=== PATIENT | female | born 1990 | race Caucasian/White ===

== ENCOUNTER 2018-05-05 06:24 | Inpatient (IN) | payer OTHER ==
[~2018-05-05] VITALS: Ht 160 cm; Wt 59.0 kg
[2018-05-05 08:00] VITALS: BP 86/54
[2018-05-05] MEDS ORDERED: NACL 0.9% 1,000 ML IV SCH (08:50)
[2018-05-05] MEDS ORDERED: DOCUSATE SODIUM 100 MG GELCAP PO PRN (08:50)
[2018-05-05] MEDS ORDERED: ONDANSETRON 4 MG/2 ML VIAL IM/IVP PRN (08:50)
[2018-05-05] MEDS ORDERED: HYDROcodone/APAP 5/325 MG 1 TAB TAB PO PRN (08:50)
[2018-05-05] MEDS ORDERED: ACETAMINOPHEN 325 MG TAB PO PRN (08:50)
[2018-05-05] MEDS ORDERED: MORPHINE SULFATE 2 MG/ML SYR IVP PRN (08:50)
[2018-05-05 09:54] LABS: BASOPHILS % (AUTO) 0.4 % (0.0-2.0); HEMATOCRIT 36.8 % (36-48); HEMOGLOBIN 12.8 g/dL (12.0-16.0); LYMPHOCYTES # (AUTO) 0.2 K/uL (2.5-16.5); LYMPHOCYTES % (AUTO) 7.6 % (20.5-51.1); MEAN CORPUSCULAR HEMOGLOBIN 29 pg (27-31); MEAN CORPUSCULAR HGB CONC 35 g/dL (33-37); MEAN CORPUSCULAR VOLUME 83.6 fL (80-94); MONOCYTES # (AUTO) 0.2 K/uL (0.8-1.0); MONOCYTES % (AUTO) 6.3 % (1.7-9.3); NEUTROPHILS # (AUTO) 2.3 K/uL (1.8-7.7); NEUTROPHILS % (AUTO) 85.7 % (42.2-75.2); PLATELET COUNT (AUTO) 131 K/uL (140-450); RED BLOOD CELL COUNT(AUTO) 4.41 MIL/uL (4.20-5.40); WHITE BLOOD COUNT (AUTO) 2.6 K/uL (4.8-10.8)
[2018-05-05 10:16] LABS: ALBUMIN 3.4 g/dL (3.4-5.0); ANION GAP 12.7 (8-16); CREATININE 0.8 mg/dL (0.6-1.3); POTASSIUM 3.7 mmol/L (3.5-5.1); TOTAL BILIRUBIN 1.1 mg/dL (0.0-1.0)
[2018-05-05 10:24] LABS: CHOL/HDL RATIO 2.8 (1-4.5); PHOSPHORUS 4.4 mg/dL (2.5-4.9); THYROID STIMULATING HORMONE 1.36 uIU/mL (0.34-3.74)
[2018-05-05 10:27] LABS: PROTHROMBIN TIME 12.3 secs (10.8-13.4)
--- NOTE | 2018-05-05 11:28 | NUR ---
SPOKE WITH DR BUI. ORDERS TO OBTAIN CONSENT FOR ERCP
[2018-05-05] MEDS: PIPER/TAZO 3.375GM/D5W PREMIX 50 ML IV SCH ×2 (11:49→17:31)
[2018-05-05 12:00] VITALS: BP 90/64
[2018-05-05] MEDS ORDERED: MEPERIDINE 50 MG/ML SYR ONE (14:10)
[2018-05-05] MEDS ORDERED: fentaNYL 0.05 MG/ML VIAL ONE (14:10)
[2018-05-05] MEDS ORDERED: MIDAZOLAM 2 MG/2 ML VIAL ONE (14:10)
[2018-05-05] MEDS ORDERED: LACTATED RINGERS 1,000 ML IV SCH (15:20)
[2018-05-05 16:00] VITALS: BP 100/74
[2018-05-05] MEDS: DEXT 5% /NACL 0.9% 1,000 ML IV SCH (17:37)
--- NOTE | 2018-05-05 19:25 | NUR ---
REPORT GIVEN TO HOUSETRAILER SERVICER NURSE AT BEDSIDE. PATIENT IS IN STABLE CONDITION.
--- NOTE | 2018-05-05 19:26 | NUR ---
RECEIVED REPORT FROM DAY SHIFT NURSE. AAOX4. NO C/O PAIN. NO C/O NAUSEA OR VOMITING. IV TO LEFT FA #20G, D5NS AT 100 ML, INFUSING WELL. IV TO RIGHT AC #20, SALINE LOCK. DISCUSSED PLAN OF CARE, PT VERBALIZED UNDERSTANDING. CALL LIGHT WITHIN REACH.
[2018-05-05 20:00] VITALS: BP 116/73
--- NOTE | 2018-05-05 21:10 | NUR ---
PT C/O ABDOMINAL PAIN 5/10 SCALE. NORCO 5/325MG GIVEN ORDERED.
--- NOTE | 2018-05-05 23:30 | NUR ---
PT IN BED, AWAKE. NO C/O PAIN. NO RESP DISTRESS NOTED. ALL NEEDS MET AT THIS TIME. CALL LIGHT WITHIN REACH.
[2018-05-06] VITALS: BP 98/67
[2018-05-06] MEDS: PIPER/TAZO 3.375GM/D5W PREMIX 50 ML IV SCH ×3 (00:51→11:29)
--- NOTE | 2018-05-06 01:45 | NUR ---
PT RESTING IN BED WITH EYES CLOSED. RESP EVEN AND UNLABORED. NO S/S OF PAIN OR DISCOMFORT.
[2018-05-06] MEDS: DEXT 5% /NACL 0.9% 1,000 ML IV SCH ×3 (02:45→22:45)
--- NOTE | 2018-05-06 03:50 | NUR ---
PT SLEEPING BUT EASILY AROUSABLE. NO S/S OF DISTRESS NOTED.
[2018-05-06 04:00] VITALS: BP 98/61
[2018-05-06 06:21] LABS: T4 (THYROXINE) 10.7 ug/dL (4.5-12.0)
--- NOTE | 2018-05-06 06:38 | NUR ---
PATIENT HAS BEEN SCREENED AND CATEGORIZED HIGH NUTRITION RISK. PATIENT WILL BE SEEN WITHIN 1-2 DAYS OF ADMISSION. 05/06/18-05/07/18 ISABELL TIM MS, RDN
--- NOTE | 2018-05-06 07:15 | NUR ---
ENDORSED PT TO DAY SHIFT NURSE. PT IN STABLE CONDITION.
--- NOTE | 2018-05-06 07:30 | NUR ---
RECEIVED PT REPORT FROM MANAGER INSTRUMENTATION NURSE. AAOX4. NO C/O PAIN. NO C/O NAUSEA OR VOMITING. LUNG SOUNDS CLEAR, BOWEL SOUNDS ACTIVE. IV TO LEFT FA #20G, D5NS AT 100 ML, INFUSING WELL. IV TO RIGHT AC #20, SALINE LOCK. DISCUSSED PLAN OF CARE, PT VERBALIZED UNDERSTANDING. CALL LIGHT WITHIN REACH. Addendum: 05/06/18 at 1131 by Sony Lira RN IV TO LEFT FA #22G, RUNNING D5NS AT 100 ML
[2018-05-06 07:43] LABS: HEMATOCRIT 33.9 % (36-48); HEMOGLOBIN 11.7 g/dL (12.0-16.0); MEAN CORPUSCULAR HEMOGLOBIN 29 pg (27-31); MEAN CORPUSCULAR HGB CONC 34 g/dL (33-37); MEAN CORPUSCULAR VOLUME 85.1 fL (80-94); PLATELET COUNT (AUTO) 99 K/uL (140-450); RED BLOOD CELL COUNT(AUTO) 3.98 MIL/uL (4.20-5.40); RED CELL DISTRIBUTION WIDTH 12.6 % (11.6-13.7)
[2018-05-06 07:56] LABS: ANION GAP 13.5 (8-16); CREATININE 0.8 mg/dL (0.6-1.3); POTASSIUM 3.5 mmol/L (3.5-5.1)
[2018-05-06 08:00] VITALS: BP 103/73
[2018-05-06 08:00] LABS: MAGNESIUM 1.6 mg/dL (1.8-2.4); PHOSPHORUS 3.2 mg/dL (2.5-4.9)
--- NOTE | 2018-05-06 08:00 | NUR ---
DR FLORES HAS SEEN THE PT. OK TO DC FROM HIS PERSPECTIVE. FOLLOW UP WITH HIM AFTER DC. PT NEEDS STENT REMOVAL AFTER 3-4 WKS.
[2018-05-06 08:02] LABS: WHITE BLOOD COUNT (AUTO) 1.8 K/uL (4.8-10.8)
[2018-05-06 08:21] LABS: LYMPHOCYTES % (MANUAL) 20 % (20-46); MONOCYTES % (MANUAL) 12 % (5-12)
--- NOTE | 2018-05-06 10:07 | NUR ---
05/06/18 RD INITIAL ASSESSMENT COMPLETED PLEASE REFER TO NUTRITION ASSESSMENT UNDER CARE ACTIVITY FOR ESTIMATED NUTRITIONAL NEEDS. RD RECOMMENDATIONS: 1. CONTINUES ON CLEAR LIQUID MEDICALLY APPROPRIATE. 2. ADVANCE DIET TOLERATED TO CARDIAC DIET. 3. CONSULT RDN PRN. 4. RD WILL F/U 2-3 DAYS; HIGH RISK. ISABELL TIM, , RDN
[2018-05-06 12:00] VITALS: BP 106/70
--- NOTE | 2018-05-06 14:50 | NUR ---
ASSESS PT'S PAIN, PT STATED ABD PAIN COMES AND GOES 5/10, LAST ABOUT 2-3 SEC. PT STATED IT'S TOLERABLE, REFUSED ANY PAIN MEDS AT THIS TIME. STOOL IS GREEN LIQUIDITY. MADE DR BAPTISTE AWARE.
[2018-05-06 16:00] VITALS: BP 105/79
[2018-05-06] MEDS ORDERED: MAG SULF 2000 MG/WATER PREMIX 50 ML IV SCH (16:20)
[2018-05-06] MEDS ORDERED: LEVOFLOXACIN 500 MG/D5W PREMIX 100 ML IV SCH (16:30)
--- NOTE | 2018-05-06 19:30 | NUR ---
ENDORSED PT TO CARPENTER PACKING NURSE. PT IN STABLE CONDITION.
--- NOTE | 2018-05-06 19:31 | NUR ---
RECEIVED PT REPORT FROM DAY SHIFT NURSE ADDY-RN. AAOX4, ON ROOM AIR WITH IV TO TO RIGHT AC #20. DISCUSSED PLAN OF CARE, PT VERBALIZED UNDERSTANDING. NO S/S OF RESPIRATORY DISTRESS OR DISCOMFORT NOTED. BED IN LOWEST POSITION, BED BREAKS ON AND SIDE RAILS UP. BED SIDE TABLE AND CALL LIGHT WITHIN REACH. WILL CONTINUE TO MONITOR.
[2018-05-06 20:00] VITALS: BP 101/66
--- NOTE | 2018-05-06 20:00 | NUR ---
VITAL SIGNS TAKEN AND TOLERATED WELL. WILL CONTINUE TO MONITOR.
[2018-05-06] MEDS: metroNIDAZOLE 500 MG/NS PREMIX 100 ML IV SCH (21:03)
--- NOTE | 2018-05-06 21:05 | NUR ---
SCHEDULED MEDICATION GIVEN AND TOLERATED WELL. NO S/S OF RESPIRATORY DISTRESS OR DISCOMFORT. PT REQUESTING WARM BLANKET AND TO TURN OFF A/C. DONE REQUESTED FOR COMFORT. WILL CONTINUE TO MONITOR.
--- NOTE | 2018-05-06 23:00 | NUR ---
PT SLEEPING IN BED. NO S/S OF RESPIRATORY DISTRESS OR DISCOMFORT NOTED AT THIS TIME. WILL CONTINUE TO MONITOR.
[2018-05-07] VITALS: BP 99/61
--- NOTE | 2018-05-07 | NUR ---
VITAL SIGNS TAKEN AND TOLERATED WELL. NO S/S OF RESPIRATORY DISTRESS OR DISCOMFORT. BP LOW HOWEVER PT SAYS THAT IS NORMAL FOR HER. SAT HER UP IN BED AND RECHECKED BP AND IT INCREASED. WILL CONTINUE TO MONITOR.
--- NOTE | 2018-05-07 02:00 | NUR ---
PT RESTING IN BED. NO S/S OF RESPIRATORY DISTRESS OR DISCOMFORT. WILL CONTINUE TO MONITOR.
[2018-05-07 04:00] VITALS: BP 97/66
--- NOTE | 2018-05-07 04:00 | NUR ---
VITAL SIGNS TAKEN AND TOLERATED WELL. NO S/S OF RESPIRATORY DISTRESS OR DISCOMFORT NOTED. WILL CONTINUE TO MONITOR.
[2018-05-07] MEDS: metroNIDAZOLE 500 MG/NS PREMIX 100 ML IV SCH ×2 (04:51→12:37)
--- NOTE | 2018-05-07 05:00 | NUR ---
SCHEDULED MEDICATION GIVEN AND TOLERATED WELL. WILL CONTINUE TO MONITOR.
--- NOTE | 2018-05-07 06:00 | NUR ---
PT SLEEPING IN BED. NO S/S OF RESPIRATORY DISTRESS OR DISCOMFORT AT THIS TIME. WILL CONTINUE TO MONITOR.
[2018-05-07] MEDS: DEXT 5% /NACL 0.9% 1,000 ML IV SCH (06:57)
[2018-05-07] MEDS ORDERED: METR250T2 PO ×2 (07:29→07:46)
[2018-05-07] MEDS ORDERED: LEVO750T2 PO (07:29)
[2018-05-07] MEDS ORDERED: ACET-2863 PO (07:29)
--- NOTE | 2018-05-07 07:29 | NUR ---
ENDORSED PT CARE TO DAY SHIFT NURSE RESHMA FOR CONTINUITY OF CARE.
--- NOTE | 2018-05-07 07:30 | NUR ---
RECEIVED PT REPORT FROM [employer]ZMAT TANKER DRIVER NURSE. AAOX4. ABD PAIN COMES AND GOES, LAST SEVERAL SECS, 5/10 TOLERABLE, NOTIFIED DR BAPTISTE. NO C/O NAUSEA OR VOMITING. LUNG SOUNDS CLEAR, BOWEL SOUNDS ACTIVE. IV TO RIGHT AC 20G, D5NS AT 100 ML, INFUSING WELL. DISCUSSED PLAN OF CARE, PT VERBALIZED UNDERSTANDING. CALL LIGHT WITHIN REACH.
[2018-05-07 08:00] VITALS: BP 103/68
--- NOTE | 2018-05-07 08:20 | NUR ---
PT ATE 60% BREAKFAST. TOLERATED FINED. DENIES NAUSEA AND VOMITING.
[2018-05-07 09:04] LABS: HEMATOCRIT 37.3 % (36-48); HEMOGLOBIN 12.8 g/dL (12.0-16.0); MEAN CORPUSCULAR HEMOGLOBIN 29 pg (27-31); MEAN CORPUSCULAR HGB CONC 34 g/dL (33-37); MEAN CORPUSCULAR VOLUME 83.5 fL (80-94); PLATELET COUNT (AUTO) 105 K/uL (140-450); RED BLOOD CELL COUNT(AUTO) 4.47 MIL/uL (4.20-5.40)
[2018-05-07 09:29] LABS: ANION GAP 12.2 (8-16); CARBON DIOXIDE 26.3 mmol/L (21-32); CREATININE 0.7 mg/dL (0.6-1.3); POTASSIUM 3.5 mmol/L (3.5-5.1)
[2018-05-07 09:48] LABS: WHITE BLOOD COUNT (AUTO) 1.7 K/uL (4.8-10.8)
[2018-05-07 09:50] LABS: MAGNESIUM 1.8 mg/dL (1.8-2.4); PHOSPHORUS 2.9 mg/dL (2.5-4.9)
[2018-05-07 10:36] LABS: BASOPHILS % (MANUAL) 0 % (0-2); EOSINOPHILS % (MANUAL) 1 % (0-4); LYMPHOCYTES % (MANUAL) 28 % (20-46); MONOCYTES % (MANUAL) 14 % (5-12)
[2018-05-07 12:00] VITALS: BP 98/62
--- NOTE | 2018-05-07 15:40 | NUR ---
PT DISCHARGED PER MD ORDER. DISCHARGE INSTRUCTION AND MED TEACHING PROVIDED. RX GIVEN. PT VERBALIZED UNDERSTANDING. WILL GO TO PHARM TODAY. MADE PT AWARE THAT SHE NEED TO SCHEDULE APPT WITH DR FLORES FOR ERCP EVAL AND PCP WITHIN 3 BUSINESS DAYS. IV DC'ED, TIP INTACT, PRESSURE APPLIED. PT STATED PAIN IS BETTER, 3/10 RIGHT NOW, TOLERABLE. TELE REMOVED. WRIST BAND REMOVED. PT LEFT WITH ALL HER BELONGINGS AND IN STABLE CONDITION.
--- NOTE | 2018-05-08 08:37 | NUR ---
RETRO H&P, CONSULT, OPERATIVE REPORT AND DISCHARGE SUMMARY FAXED TO [facility] [phone] PHONE SLY [phone]
== END 2018-05-07 15:40 | disposition home or self-care (01) ==
LOC: MTU 07:20 → MMU 05-06 12:23
PROVIDERS: ADMIT Surgery; ATTEND Surgery
PROC: BF101ZZ Fluoroscopy of Bile Ducts using Low Osmolar Contrast (ICD-10-PCS; 2018-05-05)
PROC: 0F7C8ZZ Dilation of Ampulla of Vater, Via Natural or Artificial Opening Endoscopic (ICD-10-PCS; 2018-05-05)
PROC: 0FCC8ZZ Extirpation of Matter from Ampulla of Vater, Via Natural or Artificial Opening Endoscopic (ICD-10-PCS; 2018-05-05)
PROC: 0F798DZ Dilation of Common Bile Duct with Intraluminal Device, Via Natural or Artificial Opening Endoscopic (ICD-10-PCS; principal; 2018-05-05 14:00)
DX: K80.30 Calculus of bile duct with cholangitis, unspecified, without obstruction (principal); D69.6 Thrombocytopenia, unspecified; R74.0 Nonspecific elevation of levels of transaminase and lactic acid dehydrogenase [LDH]; K57.90 Diverticulosis of intestine, part unspecified, without perforation or abscess without bleeding; Z90.49 Acquired absence of other specified parts of digestive tract
CPT/HCPCS: 36415; 71045; 74018; 80048; 80053; 83036; 83605; 83690; 83735; 83880; 84100; 84436; 84443; 84479; 85025; 85610; 85730; 87081; 93005; C1727; C1769; C1773; J1956; J2175; J2250; J2405; J2543; J3010; J3475; J3490; J7030; J7042; Q0092